=== PATIENT | male | born 1945 | race Hispanic/Latino ===

== ENCOUNTER 2024-07-24 00:14 | Emergency (ER) | payer MEDICARE ==
[~2024-07-24] VITALS: Ht 165.1 cm; Wt 59.0 kg
[2024-07-24 01:00] VITALS: TEMP 98.6
[2024-07-24 01:43] LABS: BASOPHILS % 0.2 % (0.0-1.0); EOSINOPHILS % 0.2 % (0.0-6.0); HEMATOCRIT 41.2 % (38.2-49.6); HEMOGLOBIN 14.6 g/dL (14.0-18.0); LYMPHOCYTES # (AUTO) 1.3 (1.0-3.2); LYMPHOCYTES % 21.2 % (18.0-39.1); MEAN CORPUSCULAR HEMOGLOBIN 31.9 pg (28-32); MEAN CORPUSCULAR HGB CONC 35.4 g/dL (31-35); MONOCYTES # (AUTO) 0.7 (0.2-0.8); MONOCYTES % 11.4 % (4.4-11.3); NEUTROPHILS # (AUTO) 4.2 (2.1-6.9); NEUTROPHILS % 66.8 % (38.7-80.0); PLATELET COUNT 138 x10e3/uL (140-360); RED BLOOD COUNT 4.58 x10e6/uL (4.3-5.7); RED CELL DISTRIBUTION WIDTH 13.1 % (11.7-14.4); WHITE BLOOD COUNT 6.23 x10e3/uL (4.8-10.8)
[2024-07-24 01:55] LABS: ALBUMIN 3.3 g/dL (3.5-5.0); ALBUMIN/GLOBULIN RATIO 0.8 (0.8-2.0); ANION GAP 15.6 mmol/L (8-16); CALCIUM 8.2 mg/dL (8.4-10.2); CREATININE, SERUM 0.86 mg/dL (0.72-1.25); POTASSIUM 3.6 mmol/L (3.5-5.1); TOTAL PROTEIN 7.5 g/dL (6.5-8.1)
[2024-07-24 01:56] LABS: INFLUENZA A AG NEGATIVE (NEGATIVE)
[2024-07-24 01:57] LABS: CORONAVIRUS COVID-19 AG POSITIVE (NEGATIVE); INFLUENZA B AG POSITIVE (NEGATIVE)
[2024-07-24 02:04] LABS: TROPONIN I 5.533 ng/mL (0-0.300)
[2024-07-24 02:57] LABS: INR 1.13; PROTHROMBIN TIME 15.5 seconds (11.9-14.5)
[2024-07-24 02:58] LABS: PARTIAL THROMBOPLASTIN TIME 29.3 seconds (23.8-35.5)
[2024-07-24] MEDS: ASPIRIN 81 MG CHEW TAB PO ONE (03:34)
[2024-07-24 04:15] VITALS: PULSE 66; RESP 20; O2SAT 93
== END 2024-07-24 04:42 | disposition other institution (70) ==
LOC: ER 01:15
DX: R53.1 Weakness (principal); I21.4 Non-ST elevation (NSTEMI) myocardial infarction; U07.1 COVID-19; J10.1 Influenza due to other identified influenza virus with other respiratory manifestations; W18.39XA Other fall on same level, initial encounter; I10 Essential (primary) hypertension; R94.31 Abnormal electrocardiogram [ECG] [EKG]
CPT/HCPCS: 36415; 70450; 71045; 72125; 80053; 82550; 83880; 84484; 85025; 85610; 85730; 93005; 99284